=== PATIENT | male | born 1975 | race Caucasian/White ===

== ENCOUNTER 2020-04-18 09:02 | Inpatient (IN) | payer BC ==
[~2020-04-18] VITALS: Ht 167.6 cm; Wt 104.5 kg
[~2020-04-18 09:02] MED LIST: DEXT1DRO9 OP
[2020-04-18] MEDS ORDERED: normal saline 1000ML IV soln IV ONE (09:45)
[2020-04-18 10:16] LABS: BASOPHILS % (AUTO) 0.5 % (0-1); EOSINOPHILS % (AUTO) 0 % (0-6); HEMATOCRIT 42.9 % (42.0-52.0); HEMOGLOBIN 14.6 g/dl (14.0-17.9); LYMPHOCYTES # (AUTO) 0.6 X10'3 (1.1-4.8); LYMPHOCYTES % (AUTO) 8.3 % (21-51); MEAN CORPUSCULAR HEMOGLOBIN 31.6 PG (27.0-31.0); MEAN CORPUSCULAR HGB CONC 34.1 g/dL (33.0-36.5); MEAN CORPUSCULAR VOLUME 92.5 FL (78-98); MEAN PLATELET VOLUME 9.1 FL (7.4-10.4); MONOCYTES # (AUTO) 0.7 X10'3 (0-0.9); MONOCYTES % (AUTO) 9.1 % (2-12); NEUTROPHILS # (AUTO) 5.9 X10'3 (1.8-7.7); NEUTROPHILS % (AUTO) 82.1 % (42-75); PLATELET COUNT 177 X10'3 (140-440); RED BLOOD COUNT 4.64 X10'6 (4.70-6.10); RED CELL DISTRIBUTION WIDTH 13.1 % (11.5-14.5); WHITE BLOOD COUNT 7.2 X10'3 (4.5-11.0)
[2020-04-18] MEDS ORDERED: LORazepam 2 mg/ml vial IV ONE ×2 (10:20→12:20)
[2020-04-18 10:28] LABS: BLOOD UREA NITROGEN 15 MG/DL (7-18); CHLORIDE 93 MMOL/L (99-107); CREATININE 0.79 MG/DL (0.60-1.10); GLUCOSE 141 MG/DL (70-104); SODIUM 133 MMOL/L (135-145); eGFR > 90 ML/MIN
[2020-04-18 10:36] LABS: ALANINE AMINOTRANSFERASE 86 U/L (12-78); ALBUMIN 4.3 G/DL (3.4-5.0); ALKALINE PHOSPHATASE 135 IU/L (46-116); ANION GAP 10 (8-16); ASPARTATE AMINO TRANSFERASE 72 U/L (10-37); BILIRUBIN,TOTAL 0.6 MG/DL (0.1-1.0); TOTAL CARBON DIOXIDE 29.9 MMOL/L (24-32); TOTAL PROTEIN 8.5 G/DL (6.4-8.2)
[2020-04-18] MEDS ORDERED: NO HOME MEDS (10:45)
[2020-04-18] MEDS ORDERED: metoprolol tartrate 1mg/ml inj IV ONE (10:55)
[2020-04-18] MEDS ORDERED: iohexol 350MG/ML 100ml bottle IV ONE (11:15)
[2020-04-18 11:16] LABS: URINE AMPHETAMINE SCREEN NEGATIVE (Neg); URINE BARBITUATE SCREEN NEGATIVE (Neg); URINE BENZODIAZEPINES SCREEN NEGATIVE (Neg); URINE CANNABINOID SCREEN NEGATIVE (Neg); URINE COCAINE SCREEN NEGATIVE (Neg); URINE METHADONE SCREEN NEGATIVE (Neg); URINE OPIATE SCREEN NEGATIVE (Neg); URINE PHENCYCLIDINE SCREEN NEGATIVE (Neg)
[2020-04-18 11:19] LABS: CLARITY,URINE CLEAR (Clear); COLOR,URINE YELLOW (Yellow); GLUCOSE, URINE NEGATIVE (Neg); KETONES,URINE 40 mg/dl (Neg); LEUKOCYTE ESTERASE ,URINE NEGATIVE (Neg); NITRITES, URINE NEGATIVE (Neg); OCCULT BLOOD,URINE SMALL (Neg); PH,URINE 5.5 (4.8-8.0); PROTEIN,URINE >=300 mg/dl (Neg); UROBILINOGEN,URINE 0.2 E.U/dL (0.2-1.0)
[2020-04-18] MEDS ORDERED: hydrALAZINE 20mg/ml inj. IV ONE (11:20)
[2020-04-18 11:25] LABS: UA COLLECTION TYPE URINAL
[2020-04-18 11:26] LABS: SQUAMOUS EPITHELIAL CELL,UR FEW /LPF (FEW)
[2020-04-18 11:27] LABS: BACTERIA,URINE NONE SEEN /HPF (Neg); MUCUS STRANDS FEW /LPF (Neg); RBC,URINE 0-2 /HPF (0-2); WBC,URINE 0-4 /HPF (0-4)
[2020-04-18 11:28] LABS: AMMONIUM BIURATE CRYSTALS FEW /HPF (NEGATIVE)
[2020-04-18 11:56] LABS: ETHANOL < 0.010 GM/DL (0.0-0.010)
[2020-04-18] MEDS ORDERED: thiamine 100mg/ml 2ml inj. IV ONE (12:20)
[2020-04-18] MEDS ORDERED: folic acid 1mg/0.2ml inj IV ONE (12:20)
[2020-04-18] MEDS ORDERED: thiamine inj. 100 MG in normal saline 100ml IV soln 100 ML IV ONE (12:55)
[2020-04-18] MEDS ORDERED: potassium CL 10mEq/100ml bag 100 ML IV PRN ×2 (12:55)
[2020-04-18] MEDS ORDERED: LORazepam 2 mg/ml vial IV PRN ×2 (12:55)
[2020-04-18] MEDS ORDERED: magnesium 2GM in 50ml NS 50 ML IV PRN (12:55)
[2020-04-18] MEDS ORDERED: haloperidol lactate 5mg/ml inj IM PRN (12:55)
[2020-04-18] MEDS ORDERED: mag hydrox/Alum hydrox/simeth 30ml oral suspension PO PRN (12:55)
[2020-04-18] MEDS ORDERED: magnesium hydroxide 30ml (MOM) UD suspension PO PRN (12:55)
[2020-04-18] MEDS ORDERED: potassium Cl 20 mEq SR tablet PO PRN ×2 (12:55)
[2020-04-18] MEDS ORDERED: ondansetron/PF 4mg/2ml inj IV PRN (12:55)
[2020-04-18] MEDS ORDERED: acetaminophen 325mg tablet PO PRN (12:55)
[2020-04-18] MEDS ORDERED: magnesium 4gm in 100ml NS 100 ML IV PRN (12:55)
[2020-04-18] MEDS ORDERED: thiamine inj. 100 MG, MVI, adult No.4 with vit. K 10 ML in dextrose 5% water 500ml 500 ML IV SCH ×6 (14:00→20:41)
[2020-04-18] MEDS ORDERED: folic acid 1mg/0.2ml inj IV SCH (14:00)
--- NOTE | 2020-04-18 19:45 | NUR ---
1919: Received report from Jennie. Patient arrived to unit via wheelchair. ALOx4 and in no apparent distress
[2020-04-18] MEDS ORDERED: enoxaparin 40mg/0.4ml syringe SQ SCH (20:00)
[2020-04-18] MEDS: K and/or MAG REPLACEMENT MC SCH (20:00)
[2020-04-18] MEDS ORDERED: hydrALAZINE 20mg/ml inj. IV PRN (20:10)
[2020-04-18 22:00] VITALS: BP 152/94
[2020-04-19 02:00] VITALS: BP 139/93
[2020-04-19 05:26] LABS: BASOPHILS % (AUTO) 0.4 % (0-1); EOSINOPHILS % (AUTO) 0.1 % (0-6); HEMATOCRIT 40.6 % (42.0-52.0); HEMOGLOBIN 13.8 g/dl (14.0-17.9); LYMPHOCYTES # (AUTO) 1.2 X10'3 (1.1-4.8); LYMPHOCYTES % (AUTO) 28.1 % (21-51); MEAN CORPUSCULAR HEMOGLOBIN 31.8 PG (27.0-31.0); MEAN CORPUSCULAR HGB CONC 34.1 g/dL (33.0-36.5); MEAN CORPUSCULAR VOLUME 93.2 FL (78-98); MEAN PLATELET VOLUME 9.4 FL (7.4-10.4); MONOCYTES # (AUTO) 0.4 X10'3 (0-0.9); MONOCYTES % (AUTO) 10.3 % (2-12); NEUTROPHILS # (AUTO) 2.6 X10'3 (1.8-7.7); NEUTROPHILS % (AUTO) 61.1 % (42-75); PLATELET COUNT 138 X10'3 (140-440); RED BLOOD COUNT 4.36 X10'6 (4.70-6.10); RED CELL DISTRIBUTION WIDTH 13.6 % (11.5-14.5); WHITE BLOOD COUNT 4.3 X10'3 (4.5-11.0)
[2020-04-19 05:38] LABS: ALANINE AMINOTRANSFERASE 60 U/L (12-78); ALBUMIN 3.2 G/DL (3.4-5.0); ALBUMIN/GLOBULIN RATIO 0.8 (1.1-1.5); ALKALINE PHOSPHATASE 103 IU/L (46-116); ANION GAP 7 (8-16); ASPARTATE AMINO TRANSFERASE 56 U/L (10-37); BILIRUBIN,TOTAL 0.7 MG/DL (0.1-1.0); BLOOD UREA NITROGEN 5 MG/DL (7-18); BUN/CREATININE RATIO 6.8 (5.4-32.0); CALCIUM 8.3 MG/DL (8.5-10.1); CHLORIDE 100 MMOL/L (99-107); CREATININE 0.74 MG/DL (0.60-1.10); GLUCOSE 100 MG/DL (70-104); LIPASE 72 U/L (73-393); MAGNESIUM 1.9 MG/DL (1.5-2.4); PHOSPHORUS 1.8 MG/DL (2.3-4.5); POTASSIUM 3.5 MMOL/L (3.5-5.1); SODIUM 137 MMOL/L (135-145); TOTAL CARBON DIOXIDE 30.3 MMOL/L (24-32); eGFR > 90 ML/MIN
--- NOTE | 2020-04-19 06:23 | NUR ---
Patient in room PCU 3023. I have received report from BLADE Valladares and had the opportunity to ask questions and assume patient care. Pt awake during change of shift, no signs of distress at this time.
[2020-04-19 07:00] VITALS: BP 167/90
[2020-04-19] MEDS: K and/or MAG REPLACEMENT MC SCH (08:00)
[2020-04-19] MEDS ORDERED: atenolol 50mg tablet PO STA (09:21)
[2020-04-19] MEDS ORDERED: ATEN50TA90 PO (09:59)
[2020-04-19] MEDS ORDERED: CHLO25CA10 PO (09:59)
--- NOTE | 2020-04-19 10:22 | NUR ---
Pt being discharged per MD orders. All instructions were given, questions answered appropriately. All belongings were collected and sent with pt. PIV discontinued, cannula intact. Tele discontinued, telephone solicitor supervisor notified. New RX escript to [facility], hard copy of Librium given to pt. Informed pt to follow up with PCP within 2 weeks, and take medications as directed, join an AA group and keep clean from alcohol. Walked pt to lobby.
== END 2020-04-19 10:22 | disposition home or self-care (01) | DRG 871 ==
LOC: ER 09:02 → ED HOLD 12:54 → PCU 3S 19:30
PROVIDERS: ADMIT Family Medicine; ATTEND Family Medicine
PROC: B32T1ZZ Computerized Tomography (CT Scan) of Left Pulmonary Artery using Low Osmolar Contrast (ICD-10-PCS; principal; 2020-04-18)
PROC: B32S1ZZ Computerized Tomography (CT Scan) of Right Pulmonary Artery using Low Osmolar Contrast (ICD-10-PCS; 2020-04-18)
DX: A41.9 Sepsis, unspecified organism (principal); I21.A1 Myocardial infarction type 2; J18.9 Pneumonia, unspecified organism; I16.1 Hypertensive emergency; I11.0 Hypertensive heart disease with heart failure; I71.2 Thoracic aortic aneurysm, without rupture; F10.20 Alcohol dependence, uncomplicated; R00.0 Tachycardia, unspecified; Z20.828 Contact with and (suspected) exposure to other viral communicable diseases
CPT/HCPCS: 36415; 71045; 71275; 76937; 80053; 80305; 80320; 81001; 82948; 83605; 83690; 83735; 83880; 84100; 84145; 84443; 84484; 85025; 85379; 85610; 87040; 87081; 87635; 92508; 92616; 93005; 93306; 93308; G0378; J0360; J1650; J2060; J3411; J3490; J7030; J7060; Q9967